=== PATIENT | female | born 1995 | race African-American/Black ===

== ENCOUNTER 2017-07-04 22:35 | Emergency (ER) | payer OTHER ==
[~2017-07-04] VITALS: Ht 165.1 cm; Wt 55.0 kg
[2017-07-04] MEDS ORDERED: LABETALOL HCL 20MG/4ML CARPUJECT IV ONE (23:15)
[2017-07-04 23:54] LABS: CLARITY URINE CLEAR (CLEAR); COLOR URINE YELLOW (YELLOW); KETONES URINE NEGATIVE (NEGATIVE); LEUKOCYTE ESTERASE URINE TRACE (NEGATIVE); NITRITE URINE NEGATIVE (NEGATIVE); OCCULT BLOOD URINE 1+ (NEGATIVE); PH URINE 6.5 (4.5-8.0); PROTEIN URINE 3+ (NEGATIVE); SPECIFIC GRAVITY URINE 1.015 (1.005-1.030); UROBILINOGEN URINE 0.2 E.U./dL (0.2-1.0)
[2017-07-05] MEDS ORDERED: PNV1TABL76 MT (00:08)
[2017-07-05] MEDS ORDERED: LACTATED RINGERS 1,000 ML IV SCH (00:09)
[2017-07-05] MEDS ORDERED: MAGNESIUM 4 G PREMIX 100 ML IV SCH (00:30)
[2017-07-05] MEDS ORDERED: LABETALOL HCL 20MG/4ML CARPUJECT IV SCH ×2 (00:30→01:45)
[2017-07-05] MEDS: MAGNESIUM 20 G PREMIX (L & D) 500 ML IV SCH ×2 (01:45→11:53)
[2017-07-05 01:56] LABS: BASOPHILS % 0.3 % (0.0-2.0); EOSINOPHILS % 0.6 % (0.0-5.0); HEMATOCRIT. 35.6 % (36.0-48.0); HEMOGLOBIN. 12.4 g/dL (12.0-16.0); LYMPHOCYTES % 12.5 % (20.0-50.0); MEAN CORPUSCULAR HEMOGLOBIN 32.7 pg (28.0-32.0); MEAN CORPUSCULAR VOLUME 93.8 fL (81.0-99.0); MONOCYTES % 4.9 % (2.0-8.0); NEUTROPHILS % 81.7 % (40.0-76.0); PLATELET 131 x1000/uL (130-400); RED CELL DISTRIBUTION WIDTH 13.7 % (11.6-14.6)
[2017-07-05 02:02] LABS: CHLORIDE 106 mEq/L (98-107)
[2017-07-05 02:08] LABS: INR 0.9; PARTIAL THROMBOPLASTIN TIME 27.5 sec (23.4-31.0); PROTHROMBIN TIME 9.5 sec (9.4-11.6)
[2017-07-05 02:12] LABS: T4 FREE 1.04 ng/dL (0.76-1.46)
[2017-07-05] MEDS ORDERED: ONDANSETRON HCL 4MG/2ML VIAL IV SCH (02:57)
[2017-07-05 03:33] LABS: *AMPHETAMINES SCREEN URINE NEGATIVE (NEGATIVE)
[2017-07-05 03:34] LABS: PHENCYCLIDINE URINE SCREEN NEGATIVE (NEGATIVE)
[2017-07-05 03:36] LABS: *BARBITURATES SCREEN URINE NEGATIVE (NEGATIVE); *BENZODIAZEPINES SCREEN URINE NEGATIVE (NEGATIVE)
[2017-07-05 03:37] LABS: METHADONE URINE SCREEN NEGATIVE (NEGATIVE)
[2017-07-05 03:38] LABS: OPIATES URINE SCREEN NEGATIVE (NEGATIVE)
[2017-07-05 03:39] LABS: *COCAINE SCREEN URINE NEGATIVE (NEGATIVE)
[2017-07-05 04:00] LABS: CANNABINOID URINE SCREEN PRESUMTIVE POSITIVE (NEGATIVE)
[2017-07-05] MEDS ORDERED: ACETAMINOPHEN 500MG TABLET PO SCH (04:18)
[2017-07-05] MEDS: BETAMETHASONE ACET/BETAMET 30 MG/5 ML VIAL IM SCH (04:36)
[2017-07-05 11:44] LABS: HEPATITIS B SURFACE ANTIGEN NEGATIVE
[2017-07-05] MEDS ORDERED: ONDANSETRON HCL 4MG TABLET PO PRN ×2 (13:00→19:45)
[2017-07-05] MEDS ORDERED: LABETALOL HCL 100MG TABLET PO SCH (16:00)
[2017-07-05] MEDS: LACTATED RINGERS 1,000 ML IV SCH (17:23)
[2017-07-05] MEDS ORDERED: ONDANSETRON HCL 8MG TABLET PO PRN (20:00)
[2017-07-06] MEDS ORDERED: MAGNESIUM 20 G PREMIX (L & D) 500 ML IV SCH (03:45)
[2017-07-06 04:13] VITALS: BP 146/91
[2017-07-06] MEDS: BETAMETHASONE ACET/BETAMET 30 MG/5 ML VIAL IM SCH (04:37)
[2017-07-06] MEDS: LACTATED RINGERS 1,000 ML IV SCH (07:26)
[2017-07-06 08:10] LABS: D-DIMER 1.74 mg/L FEU (<0.50); INR 0.9; PARTIAL THROMBOPLASTIN TIME 27.9 sec (23.4-31.0); PROTHROMBIN TIME 9.5 sec (9.4-11.6)
[2017-07-06 08:25] LABS: HEMATOCRIT. 34.6 % (36.0-48.0); LYMPHOCYTES % 9.9 % (20.0-50.0); MEAN CORPUSCULAR VOLUME 94.8 fL (81.0-99.0); MEAN PLATELET VOLUME 9.7 fl (7.4-10.4); MONOCYTES % 3.8 % (2.0-8.0); NEUTROPHILS % 86.3 % (40.0-76.0); PLATELET 140 x1000/uL (130-400); RED BLOOD CELL COUNT 3.65 mill/uL (4.2-5.4); RED CELL DISTRIBUTION WIDTH 13.8 % (11.6-14.6)
[2017-07-06 08:40] LABS: CHLORIDE 103 mEq/L (98-107)
[2017-07-06 10:43] LABS: CLARITY URINE CLEAR (CLEAR); COLOR URINE YELLOW (YELLOW); KETONES URINE NEGATIVE (NEGATIVE); LEUKOCYTE ESTERASE URINE 1+ (NEGATIVE); NITRITE URINE NEGATIVE (NEGATIVE); OCCULT BLOOD URINE 3+ (NEGATIVE); PH URINE 6.5 (4.5-8.0); PROTEIN URINE TRACE (NEGATIVE); SPECIFIC GRAVITY URINE 1.012 (1.005-1.030); UROBILINOGEN URINE 0.2 E.U./dL (0.2-1.0)
[2017-07-06] MEDS ORDERED: ONDANSETRON HCL 4MG TABLET PO PRN (13:00)
[2017-07-06] MEDS ORDERED: LACTATED RINGERS 1,000 ML IV SCH (16:15)
[2017-07-06] MEDS ORDERED: LABETALOL HCL 200MG TABLET PO SCH (17:00)
[2017-07-11 04:13] LABS: CANNABINOID CONFIRMATION URINE Positive (.)
== END 2017-07-06 17:00 | disposition left against medical advice (07) ==
LOC: ER 22:35 → L&D 23:31
PROVIDERS: ADMIT Obstetrics & Gynecology; ATTEND Obstetrics & Gynecology
DX: O21.2 Late vomiting of pregnancy (principal); O13.3 Gestational [pregnancy-induced] hypertension without significant proteinuria, third trimester; Z3A.32 32 weeks gestation of pregnancy
CPT/HCPCS: 36415; 76805; 76815; 76817; 76818; 80053; 80305; 80349; 81003; 82575; 83735; 84156; 84439; 84443; 84481; 84550; 85025; 85379; 85384; 85610; 85730; 86592; 86703; 86762; 86850; 86900; 86901; 87086; 87340; 96361; 96365; 96366; 96372; 96375; 96376; 99281; G0378; J0702; J2405; J3475; J3490; J7120; Q0162; Z7610; A4315

== ENCOUNTER 2021-11-20 02:30 | Emergency (ER) | payer MEDICAID, OTHER ==
[~2021-11-20] VITALS: Ht 170.2 cm; Wt 53.0 kg
[~2021-11-20 02:30] MED LIST: PNV1TABL76 MT
[2021-11-20 02:34] VITALS: BP 136/98
[2021-11-20] MEDS ORDERED: TETANUS, DIPHTHERIA, PERTUSSIS VAC/PF 0.5ML (>10YR OLD) IM ONE (03:15)
[2021-11-20] MEDS ORDERED: ACETAMINOPHEN 325MG TABLET PO ONE (03:15)
[2021-11-20] MEDS ORDERED: BACITRACIN ZINC OINT UDPKT TOP ONE (03:15)
[2021-11-20] MEDS ORDERED: LIDOCAINE HCL/PF 1% 10 MG/ML 5ML VIAL INFIL ONE (03:15)
== END 2021-11-20 04:25 | disposition home or self-care (01) ==
LOC: ER 02:30
DX: S01.81XA Laceration without foreign body of other part of head, initial encounter (principal); S09.8XXA Other specified injuries of head, initial encounter; R56.9 Unspecified convulsions; E05.90 Thyrotoxicosis, unspecified without thyrotoxic crisis or storm; W01.198A Fall on same level from slipping, tripping and stumbling with subsequent striking against other object, initial encounter; Y93.89 Activity, other specified; Y92.9 Unspecified place or not applicable; Z98.890 Other specified postprocedural states
CPT/HCPCS: 12013; 90471; 90715; 99283; J3490; Z7610